=== PATIENT | male | born 1980 | race African-American/Black ===

== ENCOUNTER 2019-09-01 19:38 | Emergency (ER) | payer OTHER, MEDICAID ==
[~2019-09-01] VITALS: Ht 167.6 cm; Wt 83.9 kg
[2019-09-01 21:46] VITALS: BP_SYST 129
[2019-09-02] MEDS ORDERED: KETOROLAC TROMETHAMINE 30 MG VIAL IM ONE (00:30)
[2019-09-02 01:54] VITALS: BP_SYST 132
== END 2019-09-02 01:54 | disposition home or self-care (01) ==
LOC: SED 19:38
DX: S13.8XXA Sprain of joints and ligaments of other parts of neck, initial encounter (principal); S23.3XXA Sprain of ligaments of thoracic spine, initial encounter; V49.9XXA Car occupant (driver) (passenger) injured in unspecified traffic accident, initial encounter; Y93.89 Activity, other specified; Y92.413 State road as the place of occurrence of the external cause; Y99.8 Other external cause status
CPT/HCPCS: 72125; 72128; 72131; 73030; 96372; 99285; J1885; J7030